=== PATIENT | female | born 1955 | race Caucasian/White ===

== ENCOUNTER 2019-06-05 18:36 | Emergency (ER) | payer MEDICAID, OTHER ==
[~2019-06-05] VITALS: Ht 160 cm; Wt 63.5 kg
[~2019-06-05 18:36] MED LIST: LAMO25TA5 PO
--- NOTE | 2019-06-05 18:56 | NUR ---
PT IS IN ROOM #2A. DR COLMENARES EVALUATED THE PT.
[2019-06-05 18:59] LABS: *BILIRUBIN,URIN NEGATIVE (NEGATIVE); *CLARITY,URINE CLEAR (CLEAR); *COLOR,URINE LIGHT YELLOW (YELLOW); *KETONES,URINE NEGATIVE (NEGATIVE); *UROBILINOGEN,URINE 0.2 E.U./dl (NORMAL); LEUKOCYTE ESTERASE ,URINE NEGATIVE (NEGATIVE); NITRITE, URINE NEGATIVE (NEGATIVE); PH,URINE 7.5 (5.0-8.0); UGLUCOSE NEGATIVE (NEGATIVE)
[2019-06-05 19:01] LABS: *BLOOD, URINE TRACE (NEGATIVE)
[2019-06-05 19:08] LABS: WBC,URINE 0-3 /HPF (0-3)
[2019-06-05 19:09] LABS: SQUAMOUS EPITHELIAL CELL,UR FEW /HPF (NONE SEEN)
--- NOTE | 2019-06-05 19:13 | NUR ---
Xray at bedside.
[2019-06-05 19:17] LABS: BASOPHILS # (AUTO) 0.1 K/uL (0.0-8.0); BASOPHILS % (AUTO) 0.9 % (0.0-2.0); EOSINOPHILS # (AUTO) 0.1 K/uL (0.0-0.7); EOSINOPHILS % (AUTO) 1.4 % (0.0-7.0); HEMATOCRIT 44.9 % (31.2-41.9); LYMPHOCYTES # (AUTO) 1.1 K/uL (20.0-40.0); LYMPHOCYTES % (AUTO) 14.7 % (20.5-51.5); MEAN CORPUSCULAR HEMOGLOBIN 31.3 uug (24.7-32.8); MEAN CORPUSCULAR HGB CONC 34 g/dL (32.3-35.6); MEAN CORPUSCULAR VOLUME 93.3 fL (75.5-95.3); MONOCYTES % (AUTO) 12.7 % (0.0-11.0); NEUTROPHILS # (AUTO) 5.3 K/uL (1.8-8.9); NEUTROPHILS % (AUTO) 70.3 % (38.5-71.5); PLATELET COUNT (AUTO) 233 K/uL (179-408); RED BLOOD CELL COUNT(AUTO) 4.81 MIL/uL (3.63-4.92); WHITE BLOOD COUNT (AUTO) 7.6 K/uL (3.8-11.8)
--- NOTE | 2019-06-05 19:23 | NUR ---
Respiratory at bedside.
[2019-06-05 19:24] LABS: CARBON DIOXIDE 35 mmol/L (21-32); CHLORIDE 99 mmol/L (98-107); CREATININE 0.6 mg/dL (0.6-1.3); GLUCOSE 106 mg/dL (74-106); POTASSIUM 3.7 mmol/L (3.5-5.1); UREA NITROGEN, BLOOD 9 mg/dL (7-18)
[2019-06-05] MEDS ORDERED: ALBUTEROL SULFATE 2.5 MG/3 ML NEBU ONE (19:26)
[2019-06-05] MEDS ORDERED: IPRATROPIUM BROMIDE 0.5 MG/2.5 ML NEBU ONE (19:26)
[2019-06-05 19:31] LABS: ETHANOL < 3 MG/DL (0-0)
[2019-06-05] MEDS: IPRATROPIUM BROMIDE 0.5 MG/2.5 ML NEBU NEB ONE (19:31)
[2019-06-05] MEDS: ALBUTEROL SULFATE 2.5 MG/3 ML NEBU NEB ONE (19:31)
[2019-06-05 19:35] LABS: THYROID STIMULATING HORMONE 1.145 mIU/mL (0.358-3.740)
--- NOTE | 2019-06-05 19:39 | NUR ---
Pt medically cleared by Dr. Garcia. Called Fredy Henry [facility] for psych eval, eta 30 min.
[2019-06-05 19:40] LABS: ACETAMINOPHEN < 2.0 ug/mL (10-30); ALANINE AMINOTRANSFERASE 31 U/L (14-59); ALKALINE PHOSPHATASE 95 U/L (50-136); ASPARTATE AMINOTRANSFERASE 16 U/L (15-37); BILIRUBIN,DIRECT 0.1 mg/dL (0.0-0.2); BILIRUBIN,TOTAL 0.3 mg/dL (0.2-1.0); TOTAL PROTEIN, SERUM 7.1 g/dL (6.4-8.2)
[2019-06-05] MEDS: KETOROLAC TROMETHAMINE 30 MG INJ IM ONE (20:12)
[2019-06-05] MEDS ORDERED: KETOROLAC TROMETHAMINE 30 MG INJ ONE (20:13)
--- NOTE | 2019-06-05 20:13 | NUR ---
Fredy Henry LCSW arrived to ER.
--- NOTE | 2019-06-05 20:24 | NUR ---
Fredy Henry LCSW at bedside for psych eval.
--- NOTE | 2019-06-05 20:54 | NUR ---
Called [facility] to transport patient back to [facility]. ETA 45min
--- NOTE | 2019-06-05 21:53 | NUR ---
[facility] arrived to ER to transport pt back to [facility]. Report and documentation given to EMT. VSS, no acute signs of distress, all belongings taken.
[2019-06-05 21:54] VITALS: BP 137/79
[2019-06-05 23:32] LABS: *AMPHETAMINE, URINE NEGATIVE (NEGATIVE); *BARBITURATE, URINE NEGATIVE (NEGATIVE); *CANNABINOID, URINE NEGATIVE (NEGATIVE); *COCCAINE, URINE NEGATIVE (NEGATIVE); *OPIATE, URINE NEGATIVE (NEGATIVE); *PHENCYCLIDINE SCREEN,URINE NEGATIVE (NEGATIVE)
== END 2019-06-05 21:55 | disposition home or self-care (01) ==
LOC: ER 18:36
DX: F32.9 Major depressive disorder, single episode, unspecified (principal); R30.0 Dysuria; Z88.0 Allergy status to penicillin; Z79.899 Other long term (current) drug therapy
CPT/HCPCS: 36415; 71045; 80048; 80076; 80307; 81000; 81001; 84443; 85025; 93005; 94640; 96372; 99284; G0480 ×2; G0481; J1885; A4663; J3590

== ENCOUNTER 2019-06-23 13:05 | Emergency (ER) | payer MEDICAID ==
[~2019-06-23] VITALS: Ht 152.4 cm; Wt 59.0 kg
--- NOTE | 2019-06-23 13:27 | NUR ---
at bedside to examine patient.
[2019-06-23] MEDS ORDERED: LORA1TAB PO (13:36)
[2019-06-23] MEDS ORDERED: ZOLP10TA6 PO (13:36)
[2019-06-23] MEDS ORDERED: MAGN400O6 PO (13:37)
[2019-06-23] MEDS ORDERED: [UNRECOGNIZED DRUG - CODE] PO (13:37)
[2019-06-23] MEDS ORDERED: TRAM50TA2 PO (13:37)
[2019-06-23] MEDS ORDERED: HYDR25TA4 PO (13:37)
[2019-06-23] MEDS ORDERED: FLUT16SP NS (13:37)
[2019-06-23] MEDS ORDERED: [UNRECOGNIZED DRUG - OTHER] (13:37)
[2019-06-23] MEDS ORDERED: ALBU2.5V38 IH (13:37)
[2019-06-23 13:54] VITALS: BP 127/89
--- NOTE | 2019-06-23 14:00 | NUR ---
urine collected and taken to lab as ordered by
--- NOTE | 2019-06-23 14:08 | NUR ---
Transportation services, called and arranged by charge Kimo
[2019-06-23 14:09] LABS: *BILIRUBIN,URIN NEGATIVE (NEGATIVE); *BLOOD, URINE NEGATIVE (NEGATIVE); *CLARITY,URINE CLEAR (CLEAR); *COLOR,URINE YELLOW (YELLOW); *KETONES,URINE NEGATIVE (NEGATIVE); *UROBILINOGEN,URINE 0.2 E.U./dl (NORMAL); LEUKOCYTE ESTERASE ,URINE NEGATIVE (NEGATIVE); NITRITE, URINE NEGATIVE (NEGATIVE); UGLUCOSE NEGATIVE (NEGATIVE)
--- NOTE | 2019-06-23 14:09 | NUR ---
[facility], eta 1500, trip number [id number].
--- NOTE | 2019-06-23 15:05 | NUR ---
[facility] services, in to transfer patient back to [facility]. patient AAOx4.ambulatory.
--- NOTE | 2019-06-23 15:08 | NUR ---
unit 108 report given to ester Rodriguez.
--- NOTE | 2019-06-23 15:11 | NUR ---
DCD instructions and prescritptions given to patient.
== END 2019-06-23 15:11 | disposition home or self-care (01) ==
LOC: ER 13:12
DX: H92.03 Otalgia, bilateral (principal); K08.89 Other specified disorders of teeth and supporting structures; J44.9 Chronic obstructive pulmonary disease, unspecified; F32.9 Major depressive disorder, single episode, unspecified; F41.9 Anxiety disorder, unspecified; Z88.0 Allergy status to penicillin; Z88.8 Allergy status to other drugs, medicaments and biological substances; Z79.899 Other long term (current) drug therapy
CPT/HCPCS: A4663

== ENCOUNTER 2019-09-22 12:19 | Emergency (ER) | payer MEDICAID ==
[~2019-09-22] VITALS: Ht 162.6 cm; Wt 59.0 kg
[~2019-09-22 12:19] MED LIST changes: +ALBU2.5V38 IH; +FLUT16SP NS; +HYDR25TA4 PO; -LAMO25TA5 PO; +LORA1TAB PO; +MAGN400O6 PO; +TRAM50TA2 PO; +ZOLP10TA6 PO; +[UNRECOGNIZED DRUG - CODE] PO; +[UNRECOGNIZED DRUG - OTHER]
--- NOTE | 2019-09-22 12:40 | NUR ---
Pt brought in by private ambulance from [facility], reports chronic Back pain, MARTINEZ, and breast pain. Pt states she needs refills for 2+ medications, denies n/v, dizziness, CP or SOB, no other current complaints, no distress noted.
[2019-09-22] MEDS ORDERED: ACETAMINOPHEN ES 500 MG TABLET PO ONE (13:00)
[2019-09-22] MEDS ORDERED: DEXAMETHASONE 5 MG/5 ML LIQUID UDC PO ONE (13:00)
[2019-09-22] MEDS ORDERED: IPRATROPIUM BROMIDE 0.5 MG/2.5 ML NEBU NEB ONE (13:00)
[2019-09-22] MEDS ORDERED: AZITHROMYCIN 250 MG TABLET PO ONE (13:00)
[2019-09-22] MEDS ORDERED: ALBUTEROL SULFATE 2.5 MG/3 ML NEBU NEB ONE (13:00)
[2019-09-22] MEDS ORDERED: ALBUTEROL SULFATE 2.5 MG/3 ML NEBU ONE (13:06)
[2019-09-22] MEDS ORDERED: IPRATROPIUM BROMIDE 0.5 MG/2.5 ML NEBU ONE (13:07)
[2019-09-22] MEDS ORDERED: AZITHROMYCIN 250 MG TABLET ONE (13:13)
[2019-09-22] MEDS ORDERED: ACETAMINOPHEN ES 500 MG TABLET ONE (13:13)
[2019-09-22] MEDS ORDERED: DEXAMETHASONE 5 MG/5 ML LIQUID UDC ONE (13:14)
--- NOTE | 2019-09-22 14:50 | NUR ---
Patient is for discharge. Nursing supervisor keymodule assembly was called re: ride for this patient. "Call an ambulance." per nursing supervisor keymodule assembly.
--- NOTE | 2019-09-22 17:01 | NUR ---
Called report to [facility], expect p/up for transport 1700.
--- NOTE | 2019-09-22 17:55 | NUR ---
Gave RX and d/c instructions to pt, verbalized understanding. Gave report to EMT's, pt transported.
[2019-09-22 18:01] VITALS: BP 133/90
== END 2019-09-22 18:03 | disposition home or self-care (01) ==
LOC: ER 12:20
DX: J44.1 Chronic obstructive pulmonary disease with (acute) exacerbation (principal); H92.03 Otalgia, bilateral; R51 Headache; F17.200 Nicotine dependence, unspecified, uncomplicated; M79.675 Pain in left toe(s); M54.9 Dorsalgia, unspecified; F32.9 Major depressive disorder, single episode, unspecified; F41.9 Anxiety disorder, unspecified; Z76.0 Encounter for issue of repeat prescription; Z88.0 Allergy status to penicillin; Z88.8 Allergy status to other drugs, medicaments and biological substances; Z79.899 Other long term (current) drug therapy
CPT/HCPCS: 71045; 73630; A4663; A9150; J3590; J8540; Q0144

== ENCOUNTER 2019-11-03 14:34 | Emergency (ER) | payer MEDICAID ==
[~2019-11-03] VITALS: Ht 172.7 cm; Wt 64.4 kg
[2019-11-03] MEDS ORDERED: ALBUTEROL SULFATE 2.5 MG/3 ML NEBU ONE (14:43)
[2019-11-03] MEDS ORDERED: IPRATROPIUM BROMIDE 0.5 MG/2.5 ML NEBU ONE (14:44)
[2019-11-03] MEDS ORDERED: IPRATROPIUM BROMIDE 0.5 MG/2.5 ML NEBU NEB ONE (14:45)
[2019-11-03] MEDS ORDERED: ALBUTEROL SULFATE 2.5 MG/3 ML NEBU NEB ONE (14:45)
[2019-11-03] MEDS ORDERED: CYCL5TAB PO (15:13)
[2019-11-03] MEDS ORDERED: TEMA15CA PO (15:13)
[2019-11-03] MEDS ORDERED: MAGN400O6 PO (15:13)
[2019-11-03] MEDS ORDERED: [UNRECOGNIZED DRUG - CODE] PO (15:13)
[2019-11-03] MEDS ORDERED: IBUP-1955 PO (15:13)
[2019-11-03] MEDS ORDERED: NICO-672 TD (15:13)
[2019-11-03] MEDS ORDERED: NAPR500T6 PO (15:13)
[2019-11-03] MEDS ORDERED: CLON1TAB12 PO (15:13)
[2019-11-03] MEDS ORDERED: LIDO1ADH44 TP (15:13)
[2019-11-03] MEDS ORDERED: PROM6.256 PO (15:13)
[2019-11-03] MEDS ORDERED: [UNRECOGNIZED DRUG - CODE] NS (15:13)
[2019-11-03] MEDS ORDERED: LORA-259 PO (15:13)
[2019-11-03] MEDS ORDERED: PALI117D IM (15:13)
[2019-11-03] MEDS ORDERED: ACET650T10 PO (15:13)
[2019-11-03] MEDS ORDERED: HYDR25TA4 PO (15:13)
[2019-11-03] MEDS ORDERED: AMLO2.5T4 PO (15:13)
[2019-11-03] MEDS ORDERED: LISI10TA5 PO (15:13)
--- NOTE | 2019-11-03 16:30 | NUR ---
Patient insists on smoking outside ER department 3 times. Patient was told multiple time re: NO SMOKING policy this hospital and the disadvantages & risks of smoking to her COPD with chronic cough.
--- NOTE | 2019-11-03 16:54 | NUR ---
Patient discharged to assisted living home in stable condition. Written and verbal after care instructions given to patient, patient's [email or web address] [facility] & EMT Sandeep. Patient and caregiver-staff Tiana verbalized understanding & compliance of instructions.
== END 2019-11-03 16:57 | disposition home or self-care (01) ==
LOC: ER 14:39
DX: J44.1 Chronic obstructive pulmonary disease with (acute) exacerbation (principal); Z48.00 Encounter for change or removal of nonsurgical wound dressing
CPT/HCPCS: A4663; J3590

== ENCOUNTER 2020-02-06 16:54 | Inpatient (IN) | payer MEDICAID ==
[~2020-02-06] VITALS: Ht 162.6 cm; Wt 62.6 kg
[~2020-02-06 16:54] MED LIST changes: +ACET650T10 PO; -ALBU2.5V38 IH; +AMLO2.5T4 PO; +CLON1TAB12 PO; +CYCL5TAB PO; -FLUT16SP NS; +IBUP-1955 PO; +LIDO1ADH44 TP; +LISI10TA5 PO; +LORA-259 PO; -LORA1TAB PO; +NAPR500T6 PO; +NICO-672 TD; +PALI117D IM; +PROM6.256 PO; +TEMA15CA PO; -TRAM50TA2 PO; -ZOLP10TA6 PO; +[UNRECOGNIZED DRUG - CODE] NS; +[UNRECOGNIZED DRUG - CODE] PO; -[UNRECOGNIZED DRUG - CODE] PO; -[UNRECOGNIZED DRUG - OTHER]
--- NOTE | 2020-02-06 16:54 | NUR ---
COVID-19 isolation initiated. Surgical mask provided accordingly. Patient is in ER room 3.
[2020-02-06 17:30] LABS: BASOPHILS # (AUTO) 0.1 K/uL (0.0-8.0); BASOPHILS % (AUTO) 1.5 % (0.0-2.0); EOSINOPHILS # (AUTO) 0.2 K/uL (0.0-0.7); EOSINOPHILS % (AUTO) 5.1 % (0.0-7.0); HEMATOCRIT 43.5 % (31.2-41.9); HEMOGLOBIN 14.4 g/dL (10.9-14.3); LYMPHOCYTES % (AUTO) 20.1 % (20.5-51.5); MEAN CORPUSCULAR HEMOGLOBIN 31.5 uug (24.7-32.8); MEAN CORPUSCULAR HGB CONC 33 g/dL (32.3-35.6); MEAN CORPUSCULAR VOLUME 95.1 fL (75.5-95.3); MONOCYTES # (AUTO) 0.7 K/uL (2.0-10.0); MONOCYTES % (AUTO) 14.5 % (0.0-11.0); NEUTROPHILS # (AUTO) 2.8 K/uL (1.8-8.9); NEUTROPHILS % (AUTO) 58.8 % (38.5-71.5); PLATELET COUNT (AUTO) 191 K/uL (179-408); RED BLOOD CELL COUNT(AUTO) 4.57 MIL/uL (3.63-4.92); WHITE BLOOD COUNT (AUTO) 4.7 K/uL (3.8-11.8)
--- NOTE | 2020-02-06 17:33 | NUR ---
Patient is AOX4, respiration:easy,+congestive cough heard. Patient keeps removing her mask with frequent reminders to keep the mask on.
[2020-02-06] MEDS ORDERED: ALBUTEROL SULFATE 8 GM HFA.AER.AD IH STA (17:41)
[2020-02-06 17:47] LABS: BILIRUBIN,TOTAL 0.3 mg/dL (0.2-1.0); CREATININE 0.6 mg/dL (0.6-1.3); POTASSIUM 4.1 mmol/L (3.5-5.1); TOTAL PROTEIN, SERUM 6.5 g/dL (6.4-8.2)
[2020-02-06] MEDS ORDERED: IV NORMAL SALINE 1000 ML BAG IV ONE (18:00)
[2020-02-06] MEDS ORDERED: methylPREDNISolone SOD SUCC 125 MG/2 ML VIAL IV ONE (18:00)
[2020-02-06] MEDS ORDERED: methylPREDNISolone SOD SUCC 125 MG/2 ML VIAL ONE (18:02)
--- NOTE | 2020-02-06 18:18 | NUR ---
Dinner [email or web address].
[2020-02-06] MEDS ORDERED: DULO30CA2 PO (18:19)
[2020-02-06] MEDS ORDERED: ALBU8HFA4 INH (18:19)
[2020-02-06] MEDS ORDERED: ACET1TAB12 PO (18:19)
[2020-02-06] MEDS ORDERED: DOCU100C36 PO (18:19)
[2020-02-06] MEDS ORDERED: TRIH2TAB5 PO (18:19)
[2020-02-06] MEDS ORDERED: OLAN10TA3 PO (18:19)
[2020-02-06] MEDS ORDERED: RISP0.5T20 PO (18:19)
[2020-02-06] MEDS ORDERED: CLIN300C11 PO (18:19)
[2020-02-06 18:23] LABS: FERRITIN 39 ng/mL (8-252); LACTATE DEHYDROGENASE 163 U/L (81-234)
--- NOTE | 2020-02-06 18:28 | NUR ---
Patient is for admission to 2nd floor room 222. Patient is admitted to telemetry, under care of PRODUCT SAFETY TECHNICAL ASSISTANT Diane Bello.
[2020-02-06] MEDS ORDERED: ACETAMINOPHEN 325 MG TABLET PO PRN (18:30)
[2020-02-06] MEDS ORDERED: Z GUARD REMEDY PASTE 57 GM TUBE TOP PRN (18:30)
[2020-02-06] MEDS ORDERED: MAGNESIUM HYDROXIDE 30 ML LIQUID UDC PO PRN ×2 (18:30→19:00)
[2020-02-06] MEDS ORDERED: ALBUTEROL SULFATE 8 GM HFA.AER.AD IH PRN (18:30)
[2020-02-06] MEDS ORDERED: ONDANSETRON 4 MG/2 ML VIAL IV PRN (18:30)
[2020-02-06 18:36] LABS: CREATINE KINASE, TOTAL 78 U/L (26-192)
[2020-02-06] MEDS ORDERED: Medication Not On Formulary EA (Acetaminophen 650 MG) PO PRN (19:00)
--- NOTE | 2020-02-06 19:18 | NUR ---
Hands off report given to ELAINE Borrego
[2020-02-06 20:00] VITALS: BP 149/88
[2020-02-06] MEDS ORDERED: CYCLOBENZAPRINE HCL 10 MG TABLET PO SCH (21:00)
--- NOTE | 2020-02-06 21:46 | NUR ---
ATIVAN 1MG PO X1 ORDERED BY DR. CESPEDES. PT ANXIOUS AND WANTS TO GO HOME.
--- NOTE | 2020-02-06 21:50 | NUR ---
RECEIVED PT FROM ER VIA [facility]. UNDER THE CARE OF DR. CESPEDES. DX: COPD EXACERBATION PT IN NO ACUTE DISTRESS. BELONGING LIST DONE. CUSTODIAL ASSESSMENT DONE. ADMISSION PROCESS AND CARE PLAN INITIATED.SAFETY AND COMFORT PROVIDED. WILL CONTINUE TO MONITOR.
--- NOTE | 2020-02-06 21:55 | NUR ---
PT WANTS TO GO HOME. SHE WANTS DIAPER. SHE WANTS TAXI VOUCHER WHEN SHE GOES HOME. TOLD HER THAT WE ARE NOT GOING TO PROVIDE TAXI VOUCHER IF SHE WILL GO AMA. EDUCATED THE PT REGARDING AMA. ALSO DOESN'T ADVISED FOR PT TO GO HOME. PT DOESN'T WANT TO REMOVE HER PANTS AND FOR ME TO DO SKIN CHECK. PT IN NO ACUTE DISTRESS.
[2020-02-06] MEDS: LORAZEPAM 1 MG TABLET PO ONE ×2 (22:00→22:38)
[2020-02-07] VITALS: BP 103/57
[2020-02-07 04:00] VITALS: BP 100/56
--- NOTE | 2020-02-07 06:22 | NUR ---
PT IN NO ACUTE DISTRESS. IV INTACT. PRESCRIBED MEDICATION GIVEN AND PT TOLERATED IT WELL. PT REFUSED TO TAKE ATIVAN AND ZOFRAN MEDICATION. PT WANTS HER PSYCH MEDICATIONS. PT WANTS HER LIDOCAINE PATCH. SAFETY AND COMFORT PROVIDED.ALL NEEDS ARE MET.WILL ENDORSE TO INCOMING NURSE FOR CONTINUITY OF CARE.
[2020-02-07 06:44] LABS: BASOPHILS % (AUTO) 0.4 % (0.0-2.0); HEMATOCRIT 43.8 % (31.2-41.9); HEMOGLOBIN 14.7 g/dL (10.9-14.3); LYMPHOCYTES # (AUTO) 0.4 K/uL (20.0-40.0); LYMPHOCYTES % (AUTO) 14.4 % (20.5-51.5); MEAN CORPUSCULAR HEMOGLOBIN 32.2 uug (24.7-32.8); MEAN CORPUSCULAR HGB CONC 34 g/dL (32.3-35.6); MEAN CORPUSCULAR VOLUME 95.7 fL (75.5-95.3); MONOCYTES # (AUTO) 0.2 K/uL (2.0-10.0); MONOCYTES % (AUTO) 8.1 % (0.0-11.0); NEUTROPHILS % (AUTO) 77.1 % (38.5-71.5); PLATELET COUNT (AUTO) 199 K/uL (179-408); RED BLOOD CELL COUNT(AUTO) 4.57 MIL/uL (3.63-4.92)
[2020-02-07 06:51] LABS: CREATININE 0.7 mg/dL (0.6-1.3); MAGNESIUM 2.2 mg/dL (1.8-2.4); PHOSPHOROUS 4.1 mg/dL (2.5-4.9); POTASSIUM 4.5 mmol/L (3.5-5.1)
[2020-02-07 06:55] LABS: THYROID STIMULATING HORMONE 0.817 mIU/mL (0.358-3.740)
[2020-02-07] MEDS ORDERED: PANTOPRAZOLE SODIUM 40 MG TABLET.DR PO SCH (07:00)
[2020-02-07 08:25] LABS: WHITE BLOOD COUNT (AUTO) 2.6 K/uL (3.8-11.8)
[2020-02-07] MEDS ORDERED: CLONAZEPAM 1 MG TABLET PO SCH (09:00)
[2020-02-07] MEDS ORDERED: TRIHEXYPHENIDYL HCL 2 MG TABLET PO SCH (09:00)
[2020-02-07] MEDS ORDERED: OLANZAPINE 5 MG TABLET PO SCH (09:00)
[2020-02-07] MEDS ORDERED: methylPREDNISolone SOD SUCC 40 MG/ML VIAL IV SCH (09:00)
[2020-02-07] MEDS ORDERED: HYDROCHLOROTHIAZIDE 25 MG TABLET PO SCH (09:00)
[2020-02-07] MEDS ORDERED: AMLODIPINE 2.5 MG TABLET PO SCH (09:00)
[2020-02-07] MEDS ORDERED: LISINOPRIL 10 MG TABLET PO SCH (09:00)
[2020-02-07] MEDS ORDERED: DULOXETINE 30 MG CAPSULE.DR PO SCH (09:00)
[2020-02-07] MEDS ORDERED: Medication Not On Formulary EA (Cyclobenzaprine Hcl 5 MG) PO SCH (09:00)
[2020-02-07] MEDS ORDERED: DOCUSATE SODIUM 100 MG CAPSULE PO SCH (09:00)
[2020-02-07] MEDS ORDERED: Medication Not On Formulary EA (Olanzapine (Zyprexa) 10 MG) PO SCH (09:00)
[2020-02-07 09:16] LABS: LYMPHOCYTES % (MANUAL) 14 % (20-40); MONOCYTES % (MANUAL) 6 % (2-10); NEUTROPHILS % (MANUAL) 80 % (42-75)
[2020-02-07 11:30] VITALS: BP 121/67
[2020-02-07] MEDS ORDERED: NICOTINE 21 MG/24HR PATCH TD SCH (11:45)
[2020-02-07] MEDS ORDERED: LIDOCAINE 5% PATCH TD SCH (11:45)
--- NOTE | 2020-02-07 11:46 | NUR ---
Received an order from Neville Dalal DNP for Lidocaine patch 5% daily on for 12 hrs and off for 12 hrs. Also ordered Nicotine patch 21mg daily.
[2020-02-07] MEDS ORDERED: ALBUTEROL SULFATE 8 GM HFA.AER.AD IH PRN (12:45)
[2020-02-07] MEDS ORDERED: ALBUTEROL SULFATE 8 GM HFA.AER.AD IH SCH (13:00)
[2020-02-07] MEDS ORDERED: IPRATROPIUM BROMIDE 12.9 GM INHALER INH SCH (15:00)
[2020-02-07] MEDS ORDERED: IPRATROPIUM/ALBUTEROL SULFATE 14.7 GM INHALER INH SCH (15:00)
[2020-02-07 15:30] VITALS: BP 130/79
[2020-02-07] MEDS ORDERED: ALBUTEROL SULFATE 2.5 MG/3 ML NEBU NEB PRN (15:30)
[2020-02-07] MEDS ORDERED: ALBUTEROL SULFATE 2.5 MG/ 0.5 ML NEBU NEB SCH (15:30)
[2020-02-07] MEDS ORDERED: IPRATROPIUM BROMIDE 0.5 MG/2.5 ML NEBU NEB SCH (15:30)
--- NOTE | 2020-02-07 16:30 | NUR ---
Discharge instructions provided to the patient with verbalized understanding. Discharge papers signed by and given to the patient. All belongings well accounted for. Assisted with her needs. Patient remains alert, oriented x3, not in any form of distress, on room air, stable vital signs. No complain of any pain or discomfort at this time. Patient discharged to [facility], assisted patient safely to the lobby via wheelchair. Patient picked up by [facility] transportation.
[2020-02-07] MEDS ORDERED: PRED20TA PO (17:10)
[2020-02-07] MEDS ORDERED: LIDO30AD10 TD (17:10)
[2020-02-07] MEDS ORDERED: AZIT250T13 PO (17:10)
[2020-02-07] MEDS ORDERED: risperiDONE 0.5 MG TABLET PO SCH ×2 (18:00)
== END 2020-02-07 16:20 | DRG 133 ==
LOC: ER 16:57 → TELE 19:50
PROVIDERS: ADMIT Registered Nurse; ATTEND Nurse Practitioner Acute Care
DX: J96.01 Acute respiratory failure with hypoxia (principal); Z99.81 Dependence on supplemental oxygen; E22.2 Syndrome of inappropriate secretion of antidiuretic hormone; J44.1 Chronic obstructive pulmonary disease with (acute) exacerbation; F17.210 Nicotine dependence, cigarettes, uncomplicated; F84.0 Autistic disorder; F41.9 Anxiety disorder, unspecified; G89.29 Other chronic pain; H26.9 Unspecified cataract; I10 Essential (primary) hypertension; R73.03 Prediabetes; F31.9 Bipolar disorder, unspecified; D72.819 Decreased white blood cell count, unspecified; T50.2X5A Adverse effect of carbonic-anhydrase inhibitors, benzothiadiazides and other diuretics, initial encounter; Y92.89 Other specified places as the place of occurrence of the external cause
CPT/HCPCS: 36415; 70030-TC; 71045; 82785; 83615; 83735; 84100; 84443; 85025; 86140; 93005; 94664; A4663; G0378; J2405; J2920; J2930; J3535; J3590; J7030; U0003-CS